=== PATIENT | male | born 2000 | race Caucasian/White ===

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

== ENCOUNTER 2022-10-25 13:15 | Emergency (ER) | payer BC ==
[~2022-10-25] VITALS: Ht 177.8 cm; Wt 85.3 kg
[2022-10-25 15:16] VITALS: BP 131/84
== END 2022-10-25 18:56 | disposition home or self-care (01) ==
LOC: ED 13:15
DX: S93.401A Sprain of unspecified ligament of right ankle, initial encounter (principal); W18.39XA Other fall on same level, initial encounter; Y93.89 Activity, other specified; Y92.89 Other specified places as the place of occurrence of the external cause; Y99.8 Other external cause status